=== PATIENT | male | born 1975 | race Caucasian/White ===

== ENCOUNTER 2017-03-27 07:02 | Emergency (ER) | payer MEDICAID ==
[2017-03-27 07:31] VITALS: BP 150/88; PULSE 98; RESP 18; TEMP 97.9; O2SAT 93
[2017-03-27] MEDS ORDERED: IBUPROFEN 600 MG TAB PO ONE (07:48)
--- NOTE | 2017-03-27 08:11 | UCPHY ---
H & P Time Seen by Provider: 03/27/17 07:40 Patient Type: New HPI/ROS: Patient complains of left knee pain that he describes as achy at baseline and sharp with any flexion of the knee in the lower prepatellar region. The symptoms started 3 days prior to arrival and have worsened since. 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 He reports difficulty sleeping due to the pain last night which peaks out at 7 -8/10 intensity and is currently mild to moderate. He notes no other exacerbating factors. He did notice that had increased pain however coaching across last night. ROS: No fevers or chills. No other constitutional symptoms. HEENT: No complaints pulmonary: No complaints cardiovascular: No pallor discoloration to the affected leg. No posterior calf swelling. Musculoskeletal: No acute trauma. No feeling of instability to the knee. No crepitance. No prior significant left knee injuries. 7 point ROS is otherwise negative. Past Medical/Surgical History: Otherwise healthy Smoking Status: Never smoked Physical Exam: Physical Exam Vital signs are normal. General: No acute distress Eyes: Pupils equal and react to light. Extraocular motions are intact. Lungs: No respiratory distress. Cardiac: Brisk capillary refill is intact throughout. Pulses are 2+ and symmetric in the affected extremity. Skin: No rash or pallor. Extremities: Atraumatic normal except for left knee Left knee: Patient has tenderness to the lower prepatellar region with very minimal swelling. There is slight warmth to touch but no significant erythema. No patellar anxiety with lateral displacement. No crepitance is noted. He passive flexion with mild increase in pain at about 40. No laxity with Hansel 's, varus or valgus stress. Neuro: Alert and oriented x3 with no sensorimotor deficits. Initial differential diagnosis: Bony abnormality, a bursitis-infectious versus inflammatory Constitutional: Initial Vital Signs Temperature (C) 36.6 C 03/27/17 07:24 Heart Rate 98 03/27/17 07:24 Respiratory Rate 18 03/27/17 07:24 Blood Pressure 150/88 H 03/27/17 07:24 O2 Sat (%) 93 03/27/17 07:24 O2 Delivery Mode Room Air Allergies/Adverse Reactions: No Known Allergies Allergy (Verified 01/10/13 09:11) Home Medications: Medication Instructions Recorded No Medications [NO [place] [facility] [place] Ibuprofen [Motrin (*)] 600 mg PO Q6 PRN #30 tab 03/27/17 traMADol [Ultram 50 mg (*)] 50 - 100 mg PO Q4 PRN #20 tab 03/27/17 MDM/Departure - MDM Diagnostics: Imaging Impressions Knee X-Ray 03/27/17 07:47 Impression: Negative for fracture. If symptomatology suggests internal derangement, MRI could be considered for further assessment. Imaging Results: Imaging Impressions Knee X-Ray 03/27/17 07:47 Impression: Negative for fracture. If symptomatology suggests internal derangement, MRI could be considered for further assessment. Medications Given: Discontinued Medications Ibuprofen (Motrin) 600 mg PO EDNOW ONE Stop: 03/27/17 07:49 Last Admin: 03/27/17 08:13 Dose: 600 mg ED Course/Re-evaluation: We offered the patient Harrison wrap he has a pad knee brace he feels comfortable wearing the seems sufficient. Discussion: Patient without acute trauma with prepatellar pain history of working on his knees consistent with inflammatory bursitis. I counseled patient regarding this. - Depart Disposition: Home, Routine, Self-Care Clinical Impression: Prepatellar bursitis Qualifiers: Laterality: left Qualified Code(s): M70.42 - Prepatellar bursitis, left knee Condition: Good Instructions: Knee Bursitis (ED) Additional Instructions: Diagnosis: Prepatellar bursitis-inflammatory Plan: Wear a knee pad until symptoms improve Ibuprofen regularly-600 mg per 6 hours until symptoms improve Tylenol in addition for pain control as needed Tramadol if needed for pain that prevents sleep. No driving, alcohol or come tramadol. Follow up with orthopedic physician listed below if he have any ongoing symptoms despite the treatment plan or Return for any significant worsening despite the treatment plan Prescriptions: Ibuprofen [Motrin (*)] 600 mg PO Q6 PRN #30 tab PRN Reason: Pain traMADol [Ultram 50 mg (*)] 50 - 100 mg PO Q4 PRN #20 tab PRN Reason: knee pain Referrals: NONE *PRIMARY CARE P,. [Primary Care Provider] - As per Instructions Eduardo Gannon MD [Medical Doctor] - As per Instructions - PQRS PQRS Measurement: NA
[2017-03-27 08:36] LABS: % IMMATURE GRANULYOCYTES 0.5 % (0.0-1.1); ABSOLUTE IMMATURE GRANULOCYTES 0.04 10^3/uL (0.00-0.10); ADD DIFF? NO; ADD MORPH? NO; ADD SCAN? NO; ATYPICAL LYMPHOCYTE FLAG 0 (0-99); FRAGMENT RBC FLAG 0 (0-99); HEMATOCRIT 44.4 % (40.0-51.0); HEMOGLOBIN 15.5 g/dL (13.7-17.5); LEFT SHIFT FLG 0 (0-99); LIPEMIA HEMOLYSIS FLAG 90 (0-99); MEAN CELL HEMOGLOBIN 30.7 pg (27.9-34.1); MEAN CELL HEMOGLOBIN CONCENTR. 34.9 g/dL (32.4-36.7); MEAN CELL VOLUME 87.9 fL (81.5-99.8); MEAN PLATELET VOLUME 9.8 fL (8.7-11.7); PLATELET CLUMPS FLAG 0 (0-99); PLATELET COUNT 224 10^3/uL (150-400); RED BLOOD CELL COUNT 5.05 10^6/uL (4.40-6.38); RED CELL DISTRIBUTION WIDTH 12.4 % (11.5-15.2)
== END 2017-03-27 08:41 | disposition home or self-care (01) ==
LOC: CED 07:02
DX: M70.42 Prepatellar bursitis, left knee (principal)
CPT/HCPCS: 73562-PO; 85025-PO; G0463-PO